=== PATIENT | female | born 1945 ===

== ENCOUNTER 2025-01-06 08:47 | Outpatient (CLI) | payer OTHER | END 2025-01-06 08:49 | disposition home or self-care (01) | LOC: TOM 08:47 | DX: K21.9 Gastro-esophageal reflux disease without esophagitis (principal); K30 Functional dyspepsia; J02.9 Acute pharyngitis, unspecified; R10.10 Upper abdominal pain, unspecified; R10.30 Lower abdominal pain, unspecified; R13.10 Dysphagia, unspecified | CPT/HCPCS: 74178; 76536; 76700; 76856; Q9965 ==

== ENCOUNTER 2025-01-06 09:46 | Outpatient (CLI) | payer OTHER ==
[2025-01-06 10:51] LABS: CREATININE SERUM 0.66 mg/dL (0.55-1.02)
== END 2025-01-06 09:47 | disposition home or self-care (01) ==
LOC: LAB 09:46
PROVIDERS: ATTEND Radiology Diagnostic Radiology
DX: R10.30 Lower abdominal pain, unspecified (principal)